=== PATIENT | female | born 1995 | race Caucasian/White ===

== ENCOUNTER 2022-11-01 03:41 | Emergency (ER) | payer SELFPAY ==
[~2022-11-01] VITALS: Ht 165.1 cm; Wt 67.1 kg
--- NOTE | 2022-11-01 04:12 | NUR ---
SEEN BY MD AT TRIAGE.
--- NOTE | 2022-11-01 04:12 | NUR ---
FLU LIKE SYMPTOMS X2 WEEKS, TODAY CC OF SORE THROAT AND SWELLING, WITH HOARSENESS OF VOICE, + COUGH. PATIENT IS AOX4. ABLE TO MAKE NEEDS KNOWN. PLACED IN RM 19
--- NOTE | 2022-11-01 04:13 | NUR ---
STREP SWAB DONE AND SENT TO LAB
--- NOTE | 2022-11-01 05:40 | NUR ---
PT IS MEDICALLY STABLE FOR D/C. Patient discharged to home in stable condition. Written and verbal after care instructions given. Patient verbalizes understanding of instruction.
[2022-11-01 05:41] VITALS: BP 121/72
== END 2022-11-01 05:44 | disposition home or self-care (01) ==
LOC: ER 03:41
DX: B34.9 Viral infection, unspecified (principal)
CPT/HCPCS: 71045-TC; 86403-TC

== ENCOUNTER 2022-11-02 19:46 | Emergency (ER) | payer SELFPAY ==
[~2022-11-02] VITALS: Ht 160 cm; Wt 60.8 kg
[2022-11-02 20:40] VITALS: BP 113/64; TEMP 98.1
== END 2022-11-02 21:20 | disposition home or self-care (01) ==
LOC: ER 19:51
DX: S63.592A Other specified sprain of left wrist, initial encounter (principal); Z98.890 Other specified postprocedural states; Z60.2 Problems related to living alone; V09.9XXA Pedestrian injured in unspecified transport accident, initial encounter; Y93.01 Activity, walking, marching and hiking; Y92.488 Other paved roadways as the place of occurrence of the external cause; Y99.8 Other external cause status
CPT/HCPCS: 73080-TC; 73090-TC; 73130-TC